=== PATIENT | male | born 1985 | race Caucasian/White ===

== ENCOUNTER 2024-07-11 12:16 | Inpatient (IN) | payer OTHER ==
[2024-07-11 13:07] VITALS: BMI 23.7
[2024-07-11] MEDS ORDERED: MAGNESIUM HYDROX 2400MG/30ML ORAL SUSPENSION 30 ML CUP PO PRN (14:01)
[2024-07-11] MEDS ORDERED: POLYETHYLENE GLYCOL (HEALTHYLAX) 3350 17 GM PACKET PO PRN (14:01)
[2024-07-11] MEDS ORDERED: NICOTINE POLACRILEX 2 MG GUM BUC PRN (14:01)
[2024-07-11] MEDS ORDERED: ACETAMINOPHEN 325 MG TABLET (FP) PO PRN (14:01)
[2024-07-11] MEDS ORDERED: IBUPROFEN 400 MG TABLET (FP) PO PRN (14:01)
[2024-07-11] MEDS ORDERED: ONDANSETRON *ODT* 4 MG TABLET SL PRN (14:01)
[2024-07-11] MEDS ORDERED: BENZONATATE 200 MG CAPSULE PO PRN (14:01)
[2024-07-11] MEDS ORDERED: NICOTINE POLACRILEX 2 MG LOZENGE BC PRN (14:01)
[2024-07-11] MEDS ORDERED: BENZOCAINE/MENTHOL (CHLORASEPTIC ) LOZENGE MM PRN (14:01)
[2024-07-11] MEDS ORDERED: NALOXONE (NARCAN) HCL 4 MG/0.1 ML SPRAY NS PRN (14:01)
[2024-07-11] MEDS ORDERED: P-EPHED 60MG/TRIPROLIDI 2.5MG TABLET PO PRN (14:01)
[2024-07-11] MEDS ORDERED: DICYCLOMINE HCL 10 MG CAPSULE PO PRN (14:01)
[2024-07-11] MEDS ORDERED: BISMUTH SUBSALICYLATE 262 MG/15 ML BTL PO PRN (14:01)
[2024-07-11] MEDS ORDERED: guaiFENesin 600 MG TABLET.ER (FP) PO PRN (14:01)
[2024-07-11] MEDS ORDERED: LOPERAMIDE HCL 2 MG CAPSULE PO PRN (14:01)
[2024-07-11] MEDS ORDERED: MAG HYDROX/AL HYDROX/SIMETH 30 ML UNIT-DOSE CUP PO PRN (14:01)
[2024-07-11] MEDS: THIAMINE 100 MG TABLET PO SCH (22:09)
[2024-07-11] MEDS: MELATONIN 5 MG TABLETS PO SCH (22:09)
[2024-07-11] MEDS: hydrOXYzine PAMOATE 25 MG CAPSULE (FP) PO PRN (22:11)
[2024-07-11] MEDS: METHOCARBAMOL 500 MG TABLET PO PRN (22:11)
[2024-07-12] MEDS: methaDONE HCL 10 MG TABLET (FOR DETOX USE ONLY) PO ONE (03:38)
[2024-07-12] MEDS: IBUPROFEN 600 MG TABLET (FP) PO PRN (03:39)
[2024-07-12] MEDS: cloNIDine HCL 0.1 MG TABLET PO PRN (03:40)
[2024-07-12] MEDS: PRENATAL VITAMINS W/ FOLIC ACID TABLET (FP) PO SCH (09:39)
[2024-07-12 11:18] LABS: HEMATOCRIT 48.1 % (35.4-49); HEMOGLOBIN 15.9 GM/dL (11.7-16.9); MCH 28.5 pg (25.7-33.7); MEAN CELL VOLUME 86.5 fl (80-96); MEAN PLT VOLUME 9.4 fl (7.5-11.1); PLATELET COUNT 255 10^3/uL (134-434); RBC 5.57 M/mm3 (4.00-5.60); RDW 15.7 % (11.9-15.9); WHITE BLOOD COUNT 11.6 K/mm3 (4.0-10.0)
[2024-07-12 11:23] LABS: POTASSIUM 4.3 mmol/L (3.5-5.1)
[2024-07-12 11:26] LABS: CALCIUM 9.8 mg/dL (8.5-10.1)
[2024-07-12 11:27] LABS: ALBUMIN 3.8 g/dl (3.4-5.0); BLOOD UREA NITROGEN 15.9 mg/dL (7-18)
[2024-07-12 11:29] LABS: CREATININE 0.8 mg/dL (0.55-1.3)
[2024-07-12 11:31] LABS: BILIRUBIN,TOTAL 1.3 mg/dL (0.2-1); TOT PROT 9.4 g/dl (6.4-8.2)
[2024-07-12] MEDS: methaDONE HCL 10 MG TABLET (FOR DETOX USE ONLY) PO PRN (17:02)
[2024-07-12] MEDS: clonazePAM 0.5 MG ODT TABLETS SL PRN (17:03)
[2024-07-12 20:51] VITALS: RESP 16
[2024-07-12] MEDS: SUVOREXANT 10 MG TABLET PO PRN (22:32)
[2024-07-13] MEDS: methaDONE HCL 10 MG TABLET PO ONE (02:20)
[2024-07-13 06:59] VITALS: TEMP 98.7
[2024-07-13 08:39] VITALS: BP 146/89; PULSE 75
[2024-07-14] MEDS ORDERED: methaDONE HCL 10 MG TABLET (FOR DETOX USE ONLY) PO ONE (10:00)
[2024-07-16] MEDS ORDERED: methaDONE HCL 10 MG TABLET (FOR DETOX USE ONLY) PO ONE (10:00)
== END 2024-07-13 11:55 | disposition left against medical advice (07) | DRG 770 ==
LOC: YASAS 12:16 → Y6N 17:45
PROVIDERS: ADMIT Allergy & Immunology; ATTEND Allergy & Immunology
PROC: HZ2ZZZZ Detoxification Services for Substance Abuse Treatment (ICD-10-PCS; principal; 2024-07-11)
DX: F11.23 Opioid dependence with withdrawal (principal); F17.210 Nicotine dependence, cigarettes, uncomplicated; F19.282 Other psychoactive substance dependence with psychoactive substance-induced sleep disorder
CPT/HCPCS: 36415; 80053; 80305; 80307; 85027; 86780; 93005; 93010